=== PATIENT | male | born 2000 | race Caucasian/White ===

== ENCOUNTER 2019-05-05 18:57 | Emergency (ER) | payer OTHER, MEDICAID ==
[~2019-05-05] VITALS: Ht 172.7 cm; Wt 50.0 kg
[~2019-05-05 18:57] MED LIST: HYDR-3965 PO; INHALER; LEVA15HF4 IH; OMEP40CA37 PO
[2019-05-05 19:10] VITALS: BP 117/55
== END 2019-05-05 20:50 | disposition home or self-care (01) ==
LOC: ER 18:58
DX: S13.4XXA Sprain of ligaments of cervical spine, initial encounter (principal); M54.5 Low back pain; J45.909 Unspecified asthma, uncomplicated; Z79.899 Other long term (current) drug therapy; V49.59XA Passenger injured in collision with other motor vehicles in traffic accident, initial encounter; Y93.89 Activity, other specified; Y92.488 Other paved roadways as the place of occurrence of the external cause; Y99.8 Other external cause status
CPT/HCPCS: 99281

== ENCOUNTER 2021-08-06 15:57 | Emergency (ER) | payer MEDICAID, OTHER ==
[~2021-08-06] VITALS: Ht 175.3 cm; Wt 55.8 kg
[~2021-08-06 15:57] MED LIST changes: +OMEP40CA21 PO; -OMEP40CA37 PO
[2021-08-06 16:02] VITALS: BP 130/76
[2021-08-06] MEDS ORDERED: PERM60CR19 TP (16:36)
== END 2021-08-06 16:50 | disposition home or self-care (01) ==
LOC: ER 15:57
DX: R21 Rash and other nonspecific skin eruption (principal); J45.909 Unspecified asthma, uncomplicated
CPT/HCPCS: 99282